=== PATIENT | male | born 1970 | race American Indian/Alaskan Native ===

== ENCOUNTER 2019-03-06 13:08 | Emergency (ER) | payer OTHER ==
[2019-03-06 14:11] VITALS: BP 128/76
--- NOTE | 2019-03-06 14:14 | Emergency Department Report ---
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
--- NOTE | 2019-03-06 14:15 | Emergency Department Report ---
- General Chief complaint: Allergic Reaction Stated complaint: ALLERGIC REACTION ON FACE Time Seen by Provider: 03/06/19 14:09 Source: patient Mode of arrival: Ambulatory Limitations: No Limitations - History of Present Illness Initial comments: pt is a 48 yo male who presents to the ED with a rash to the face and right wrist that began yesterday. He states it is itching. 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 He denies any fever. pt used alcohol and neosporin without much relief. no PMHx no allergies to meds no daily meds non smoker occ drinker no drug use - Related Data Previous Rx's Medication Instructions Recorded Last Taken Type Mupirocin [Bactroban 2% OINT] 1 applic TP TID 5 Days #1 tube 03/06/19 Unknown Rx cephALEXin [Keflex] 250 mg PO QID 7 Days #28 capsule 03/06/19 Unknown Rx Allergies Allergy/AdvReac Type Severity Reaction Status Date / Time No Known Allergies Allergy Verified 03/06/19 13:09 Abscess Boil HPI - HPI Chief Complaint: Allergic Reaction Stated Complaint: ALLERGIC REACTION ON FACE Time Seen by Provider: 03/06/19 14:09 Home Medications: Previous Rx's Medication Instructions Recorded Last Taken Type Mupirocin [Bactroban 2% OINT] 1 applic TP TID 5 Days #1 tube 03/06/19 Unknown Rx cephALEXin [Keflex] 250 mg PO QID 7 Days #28 capsule 03/06/19 Unknown Rx Allergies/Adverse Reactions: Allergies Allergy/AdvReac Type Severity Reaction Status Date / Time No Known Allergies Allergy Verified 03/06/19 13:09 ED Review of Systems ROS: Stated complaint: ALLERGIC REACTION ON FACE Other details as noted in HPI Comment: All other systems reviewed and negative ED Past Medical Hx - Past Medical History Previous Medical History?: No Hx Congestive Heart Failure: No Hx Diabetes: No Hx Asthma: No Hx COPD: No - Surgical History Past Surgical History?: No - Social History Smoking Status: Never Smoker Substance Use Type: Alcohol - Medications Home Medications: Home Medications Medication Instructions Recorded Confirmed Last Taken Type Mupirocin [Bactroban 2% OINT] 1 applic TP TID 5 Days #1 tube 03/06/19 Unknown Rx cephALEXin [Keflex] 250 mg PO QID 7 Days #28 capsule 03/06/19 Unknown Rx ED Physical Exam - General Limitations: No Limitations General appearance: alert, in no apparent distress - Head Head exam: Present: atraumatic, normocephalic - Eye Eye exam: Present: normal appearance, PERRL - Respiratory Respiratory exam: Absent: respiratory distress - Neurological Exam Neurological exam: Present: alert, oriented X3 - Psychiatric Psychiatric exam: Present: normal affect, normal mood - Skin Skin exam: Present: other (small papules to the face and the right posterior wrist with honey colored crusting, no surrounding erythema, no blistering, no skin denuding, no mucosal involvement ) ED Course Vital Signs 03/06/19 14:09 Temperature 98.1 F Pulse Rate 84 Respiratory 18 Rate Blood Pressure 128/76 O2 Sat by Pulse 97 Oximetry ED Medical Decision Making - Medical Decision Making pt is a 48 yo male who presents to the ED with a rash to the face and right wrist that began yesterday. He states it is itching. 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 He denies any fever. pt used alcohol and neosporin without much relief. no PMHx no allergies to meds no daily meds non smoker occ drinker no drug use vitals are normal. on exam: small papules to the face and the right posterior wrist with honey colored crusting, no surrounding erythema, no blistering, no skin denuding, no mucosal involvement. examination appears consistent with impetigo. pt given mupirocen and keflex. discussed to please use all medication as prescribed. follow up with a primary care doctor in the next 3 days. return to the emergency room for any new or worsening symptoms. - Differential Diagnosis impetigo, contact dermititis, allergic rxn Critical care attestation.: If time is entered above; I have spent that time in minutes in the direct care of this critically ill patient, excluding procedure time. ED Disposition Clinical Impression: Impetigo, Rash Disposition: DC-01 TO HOME OR SELFCARE Is pt being admited?: No Does the pt Need Aspirin: No Condition: Stable Instructions: Impetigo (ED) Additional Instructions: please use all medication as prescribed. follow up with a primary care doctor in the next 3 days. return to the emergency room for any new or worsening symptoms. Prescriptions: Mupirocin [Bactroban 2% OINT] 1 applic TP TID 5 Days #1 tube cephALEXin [Keflex] 250 mg PO QID 7 Days #28 capsule Referrals: HUE THOMAS MD [Primary Care Provider] - 2-3 Days [facility] [Outside] - 2-3 Days [facility] [Provider Group] - 2-3 Days Forms: Work/School Release Form(ED) Time of Disposition: 14:23 Print Language: KITTITIAN
== END 2019-03-06 14:51 | disposition home or self-care (01) ==
LOC: ED 13:08
DX: L01.00 Impetigo, unspecified (principal)
CPT/HCPCS: 99282